=== PATIENT | female | born 1980 | race Caucasian/White ===

== ENCOUNTER → 2016-06-14 02:06 | Emergency (ER) | payer BC ==
[~2016-06-14 02:06] MED LIST: Acetaminophen TAB* 325 MG PO ONE; Morphine INJ* 4 MG/ML 1 ML SYRINGE IV ONE; Ondansetron INJ* 2 MG/ML VIAL IV ONE
[2016-06-14 03:50] LABS: Hematocrit 39 % (35-47); Hemoglobin 12.7 g/dl (12.0-16.0); Mean Corpuscular HGB Conc 33 g/dl (31-36); Mean Corpuscular Hemoglobin 28 pg (27-31); Mean Corpuscular Volume 85 fL (80-97); Mean Platelet Volume 10 um3 (7.4-10.4); Red Blood Count 4.56 10^6/ul (4.0-5.4); Red Cell Distribution Width 13 % (10.5-15)
[2016-06-14 03:59] LABS: Albumin 4.1 g/dL (3.2-5.2); BUN/Creatinine Ratio 18.5 (8-20); Calcium 9.2 mg/dL (8.6-10.3); EGFR African American 133.4 (>60); EGFR Non-African American 103.7 (>60); Globulin 2.3 g/dL (2-4); Potassium 3.6 mmol/L (3.5-5.0); Total Bilirubin 0.3 mg/dL (0.2-1.0); Total Protein 6.4 g/dL (6.4-8.9)
[2016-06-14 05:40] LABS: Urine Bacteria Absent (Absent); Urine Bilirubin Negative (Negative); Urine Glucose Negative (Negative); Urine Nitrite Negative (Negative)
[2016-06-14 06:28] VITALS: BP 115/67
--- NOTE | 2016-06-14 06:57 | ED ---
Maurice Moore Rebecca, scribed for Rafael Hughesuel on 06/14/16 at 0303 . - HPI Summary HPI Summary: Pt is a 36 y/o F who presents to ED c/o LLQ pain and vaginal bleeding at 6-8 weeks of . Pt reports that she has been lightly spotting for the past month. Starting tonight at 1900 she began experiencing LLQ pain characterized as cramping. Pain is currently severe, ranked 8/10 and has been constant since onset. Vaginal bleeding has increased in intensity. Blood is bright red with some small clots. Sx aggravated and alleviated by nothing. Reports that earlier today, she was evaluated by [facility] and had a quant and US done. LNMP April 11, 2016. A0 - History of Current Complaint Chief Complaint: EDVaginalBleeding Stated Complaint: 6-8 WKS PREG/VAG BLEED/LLQ PAIN Hx Obtained From: Patient Chief Complaint: Pain - LLQ pain, Vaginal Bleeding Onset/Duration: Started Hours Ago, Still Present Timing: Constant Severity: Moderate Current Severity: Severe Pain Intensity: 8 Location of Pain: Left Side - LLQ Character: Cramping Aggravating Factors: Nothing Alleviating Factors: Nothing Associated Signs and Symptoms: Positive: Negative - Allergies/Home Medications Allergies/Adverse Reactions: Allergies Allergy/AdvReac Type Severity Reaction Status Date / Time No Known Allergies Allergy Verified 01/11/16 10:41 PMH/Surg Hx/FS Hx/Imm Hx Endocrine/Hematology History: Denies: Hx Diabetes Neurological History: Reports: Hx Headaches, Hx Migraine - Surgical History Surgery Procedure, Year, and Place: left ankle [id number] Infectious Disease History: No Infectious Disease History: Reports: Traveled Outside the [place] in Last 30 Days - [place] - Family History Known Family History: Positive: Hypertension - Social History Alcohol Use: Occasionally Alcohol Amount: several drinks/week Substance Use Type: Reports: None Smoking Status (MU): Never Smoked Tobacco Review of Systems Positive: Abdominal Pain - LLQ pain Positive: other - Vaginal bleeding All Other Systems Reviewed And Are Negative: Yes Physical Exam - Physical Exam Triage Information Reviewed: Yes Vital Signs Reviewed: Yes Appearance: Positive: Well-Appearing, No Pain Distress Skin: Positive: Warm, Skin Color Reflects Adequate Perfusion, Dry Eyes: Positive: EOMI, ANURAG Neck: Positive: Supple, Nontender Respiratory/Lung Sounds: Positive: Clear to Auscultation, Breath Sounds Present Cardiovascular: Positive: RRR, Pulses are Symmetrical in both Upper and Lower Extremities Abdomen Description: Positive: Nontender, Soft Bowel Sounds: Positive: Present Musculoskeletal: Positive: Normal, Strength/ROM Intact Neurological: Positive: Normal, Sensory/Motor Intact, Alert, Oriented to Person Place, Time Diagnostics - Vital Signs Vital Signs Temp Pulse Resp BP Pulse Ox 06/14/16 02:47 70 94 06/14/16 02:46 136/81 06/14/16 02:40 98.4 F 63 16 136/81 97 - Laboratory Result Diagrams: 06/14/16 02:55 06/14/16 02:55 Lab Statement: Any lab studies that have been ordered have been reviewed, and results considered in the medical decision making process. - Ultrasound No standard instances Ultrasound Interpretation: Positive (See Comments) - Transvaginal US: Spontaneous . No IUP. Ultrasound Interpretation Completed By: Radiologist Course/Dx - Course Assessment/Plan: Came in with vaginal bleeding and abdominal pain. Labs, US showed spontaneous , no IUP. Spoke with Dr. Zuluaga, who recommended follow up as outpatient. Pt will be D/C to home with a follow up with Dr. Zuluaga. Dx spontaneous . - Diagnoses Provider Diagnoses: Spontaneous - Provider Notifications Discussed Care Of Patient With: Dr. Zuluaga, [facility], who advised that if the pain is manageable, she is able to be D/C to home. Time Discussed With Above Provider: 06:01 Discharge - Discharge Plan Condition: Stable Disposition: HOME Patient Education Materials: Miscarriage (ED) Referrals: Naseem Zuluaga MD [Medical Doctor] - 3 Days Priyanka Hughes NP [Primary Care Provider] - 3 Days The documentation as recorded by the Maurice ro Rebecca accurately reflects the service I personally performed and the decisions made by , Kostas Hughes.
--- NOTE | 2016-06-14 13:02 | RAD ---
HISTORY: Left lower quadrant pain and vaginal bleeding in a female. Last menstrual period is reported as April 11, 2016 corresponding to gestational age of 9 weeks and 1 day. COMPARISONS: None TECHNIQUE: Multiple transverse and longitudinal ultrasound images were obtained of the pelvis using grayscale, color flow, spectral and M-mode sonographic imaging. FINDINGS: UTERUS: The uterus is normal in shape, size, contour, and echotexture. GESTATION: There is no live intrauterine gestation identified. There is no yolk sac identified. Within the endometrium there is an irregular gestational sac measuring approximately 8 x 8 mm in the sagittal plane. The endometrial stripe is irregular with a small amount of vascularity overlying the echogenic material in the lumen. CUL-DE-SAC: There is no free fluid within the cul-de-sac. RIGHT OVARY: The right ovary measures 2.4 x 2.7 x 2.2 cm. LEFT OVARY: The left ovary measures 2.3 x 1.4 x 2.7 cm. There is no anechoic or avascular ovarian structure that would correlate to a corpus luteum. IMPRESSION: There is no live intrauterine gestation identified. Diagnostic possibilities include gestation that is too early to visualize (considered less likely according to the last menstrual period), spontaneous or ectopic . Close clinical and sonographic follow-up is advised including stranding of the mid hCG. There is partially vascular echogenic material in the endometrial canal which could represent retained products of conception.
== END | disposition home or self-care (01) ==
LOC: ED 02:06
DX: O03.9 Complete or unspecified spontaneous abortion without complication (principal); O20.8 Other hemorrhage in early pregnancy; Z3A.01 Less than 8 weeks gestation of pregnancy
CPT/HCPCS: 36415; 76817; 80053; 81003; 81015; 84702; 85025; 87086; 96374; 96375; 99283; A9270-GY; J2270; J2405